=== PATIENT | male | born 1935 | race Caucasian/White ===

== ENCOUNTER 2020-09-06 09:30 | Inpatient (IN) | payer MEDICARE ==
[~2020-09-06] VITALS: Ht 177.8 cm; Wt 72.6 kg
[~2020-09-06 09:30] MED LIST: ACTOS45 MG PO; AZOR 5-20 MG T1 EACH PO; DIGOXIN125 MCG PO; ECOTRIN81 MG PO; FEOSOL325 MG PO; GLUCOPHAGE500 MG PO; GLUCOTROL5 MG PO; LOPRESSOR100 MG PO; MEN'S MULTI-VI1 EACH PO; PROTONIX40 MG PO; SENOKOT-S TABL1 EACH PO; ZETIA 10 MG TAB10 MG PO
[2020-09-06 10:51] LABS: RED BLOOD COUNT 4.21 M/UL (4.20-5.50); WHITE BLOOD COUNT 10.4 K/UL (4.5-11.0)
[2020-09-06 11:24] LABS: BUN/CREATININE RATIO 19 (0-10)
[2020-09-06 12:10] LABS: HEMOGLOBIN 6.3 gm/dl (14.0-17.5)
[2020-09-06] MEDS ORDERED: ASPIRIN325 MG PO (16:31)
[2020-09-06] MEDS ORDERED: LASIX20 MG PO (16:57)
[2020-09-06] MEDS ORDERED: DIGOXIN125 MCG PO (16:58)
[2020-09-06] MEDS ORDERED: K-DUR TAB 10 M10 MEQ PO (16:58)
[2020-09-07 04:32] LABS: WHITE BLOOD COUNT 9.9 K/UL (4.5-11.0)
[2020-09-07 04:58] LABS: BUN/CREATININE RATIO 16 (0-10)
[2020-09-07 05:03] LABS: HEMOGLOBIN 8.4 gm/dl (14.0-17.5); RED BLOOD COUNT 4.68 M/UL (4.20-5.50)
[2020-09-07 12:42] LABS: HEMOGLOBIN 8.5 gm/dl (14.0-17.5)
[2020-09-08 03:59] LABS: HEMOGLOBIN 8.3 gm/dl (14.0-17.5); RED BLOOD COUNT 4.71 M/UL (4.20-5.50); WHITE BLOOD COUNT 10.4 K/UL (4.5-11.0)
--- NOTE | 2020-09-08 19:51 | NUR ---
FALL PRECAUTIONS IN PLACE BED ALARM ON, PATIENT ENCOURAGED TO USE CALL LIGHT AND INSTRUCTED HOW. REORIENT PATIENT WHEN NEEDED. FALL RISK LIGHT ON. ROOM FREE OF CLUTTER. BED LOCKED AND IN LOWEST POSITION. PATIENT HAS PERSONAL BELONGINGS WITHIN REACH. NON SLIP SOCKS ON.
[2020-09-09 04:08] LABS: BUN/CREATININE RATIO 18 (0-10)
[2020-09-09 04:10] LABS: HEMOGLOBIN 8.6 gm/dl (14.0-17.5); RED BLOOD COUNT 4.98 M/UL (4.20-5.50)
--- NOTE | 2020-09-09 05:43 | NUR ---
STARTED CARDIZEM TITO PER DOCTOR HODGE. CARDIZEM IVP WAS ATTEMPTED FIRST.
[2020-09-09] MEDS ORDERED: OMNICEF 300 MG300 MG PO (14:53)
[2020-09-09] MEDS ORDERED: CARDIZEM 60MG T60 MG PO (14:58)
[2020-09-09] MEDS ORDERED: CLINDAMYCIN HC300 MG PO (14:58)
[2020-09-09] MEDS ORDERED: LOPRESSOR 50 MG50 MG PO (14:58)
== END 2020-09-09 15:23 | disposition left against medical advice (07) | DRG 602 ==
LOC: ER1 09:30 → PROG CARE 14:33 → CDU 14:33 → PROG CARE 16:33
PROVIDERS: Family Medicine; Physician Assistant; ADMIT Internal Medicine
PROC: 30233N1 Transfusion of Nonautologous Red Blood Cells into Peripheral Vein, Percutaneous Approach (ICD-10-PCS; principal; 2020-09-06)
DX: L03.114 Cellulitis of left upper limb (principal); I50.33 Acute on chronic diastolic (congestive) heart failure; I48.20 Chronic atrial fibrillation, unspecified; I13.0 Hypertensive heart and chronic kidney disease with heart failure and stage 1 through stage 4 chronic kidney disease, or unspecified chronic kidney disease; D50.9 Iron deficiency anemia, unspecified; R53.1 Weakness; Z53.29 Procedure and treatment not carried out because of patient's decision for other reasons; E11.22 Type 2 diabetes mellitus with diabetic chronic kidney disease; D72.829 Elevated white blood cell count, unspecified; F28 Other psychotic disorder not due to a substance or known physiological condition; F03.90 Unspecified dementia, unspecified severity, without behavioral disturbance, psychotic disturbance, mood disturbance, and anxiety; I08.1 Rheumatic disorders of both mitral and tricuspid valves; I27.20 Pulmonary hypertension, unspecified; Z79.82 Long term (current) use of aspirin; Z79.84 Long term (current) use of oral hypoglycemic drugs; I45.10 Unspecified right bundle-branch block; N18.30 Chronic kidney disease, stage 3 unspecified
CPT/HCPCS: ECHO; 36415; 36430; 71045; 73090; 80048; 80053; 80162; 82550; 82553; 82728; 82962; 83036; 83540; 83550; 83874; 83880; 84439; 84443; 84484; 85014; 85018; 85025; 85045; 86850; 86900; 86901; 86920; 93005; 93306; 96372; 96374; 96375; 99285; J0696; J1630; J1756; J1940; J2270; J3370; J7050; J7070; P9016; U0002

== ENCOUNTER → 2021-12-14 | Outpatient (CLI) | payer MEDICARE ==
[~2021-12-14] MED LIST changes: +ASPIRIN325 MG PO; +CARDIZEM 60MG T60 MG PO; +CARDIZEM60 MG PO; +CLINDAMYCIN HC300 MG PO; +EAC PO; +FERROUS SULFAT325 M2 PO; +FERROUS SULFAT325 MG PO; +GLIPIZIDE10 MG PO; -GLUCOPHAGE500 MG PO; -GLUCOTROL5 MG PO; +K-DUR TAB 10 M10 MEQ PO; +KLOR-CON M1010 MEQ PO; +LASIX20 MG PO; +LOPRESSOR 25 MG25 MG PO; +LOPRESSOR 50 MG50 MG PO; -LOPRESSOR100 MG PO; +METFORMIN HCL1000 MG PO; +METOPROLOL TARTRATE PO; +OMNICEF 300 MG300 MG PO; +SILVADENE20 GM TOP
[2021-12-14 17:18] LABS: HEMOGLOBIN 8.8 gm/dl (14.0-17.5); RED BLOOD COUNT 4.76 M/UL (4.20-5.50); WHITE BLOOD COUNT 11.2 K/UL (4.5-11.0)
[2021-12-14 17:41] LABS: BUN/CREATININE RATIO 31 (0-10)
== END ==
LOC: LAB 16:42
PROVIDERS: Nurse Practitioner Family
DX: D64.9 Anemia, unspecified (principal); E11.9 Type 2 diabetes mellitus without complications; R97.20 Elevated prostate specific antigen [PSA]; E53.8 Deficiency of other specified B group vitamins; E55.9 Vitamin D deficiency, unspecified
CPT/HCPCS: 36415; 80053; 80061; 82607; 82728; 83540; 83550; 84439; 84443; 85025; G0103

== ENCOUNTER 2022-01-29 18:02 | Emergency (ER) | payer MEDICARE ==
[2022-01-29 19:38] LABS: HEMOGLOBIN 9.9 gm/dl (14.0-17.5); RED BLOOD COUNT 4.62 M/UL (4.20-5.50); WHITE BLOOD COUNT 7.5 K/UL (4.5-11.0)
[2022-01-29 19:59] LABS: BUN/CREATININE RATIO 14 (0-10)
== END 2022-01-29 22:22 | disposition home or self-care (01) ==
LOC: ER1 18:02
PROVIDERS: Nurse Practitioner
DX: R53.1 Weakness (principal); R00.0 Tachycardia, unspecified; R40.2410 Glasgow coma scale score 13-15, unspecified time; R29.700 NIHSS score 0; I48.91 Unspecified atrial fibrillation; I12.9 Hypertensive chronic kidney disease with stage 1 through stage 4 chronic kidney disease, or unspecified chronic kidney disease; N18.9 Chronic kidney disease, unspecified; E11.22 Type 2 diabetes mellitus with diabetic chronic kidney disease; D63.1 Anemia in chronic kidney disease; Z79.84 Long term (current) use of oral hypoglycemic drugs; Z79.899 Other long term (current) drug therapy; Z20.822 Contact with and (suspected) exposure to COVID-19
CPT/HCPCS: 0240U; 71045; 80053; 82550; 82553; 82962; 83735; 83880; 84100; 84439; 84443; 84484; 85025; 85610; 85730; 93005; 96360; 99285